=== PATIENT | male | born 1995 | race African-American/Black ===

== ENCOUNTER 2024-04-13 12:29 | Emergency (ER) | payer SELFPAY ==
[2024-04-13 12:47] VITALS: BP 134/79; PULSE 66; RESP 18; TEMP 98.6; BMI 23.1
[2024-04-13] MEDS ORDERED: IBUPROFEN 400 MG TABLET (FP) PO ONE (15:37)
[2024-04-13] MEDS: IBUPROFEN 400 MG TABLET (FP) PO ONE (15:46)
== END 2024-04-13 16:07 | disposition home or self-care (01) ==
LOC: FER 12:29
PROC: 2W3RX1Z Immobilization of Left Lower Leg using Splint (ICD-10-PCS; principal; 2024-04-13)
DX: S82.52XA Displaced fracture of medial malleolus of left tibia, initial encounter for closed fracture (principal); X50.1XXA Overexertion from prolonged static or awkward postures, initial encounter; Y93.67 Activity, basketball
CPT/HCPCS: 73610-TC-LT-FY; 73630-TC-LT; 99283-25